=== PATIENT | male | born 1970 | race Caucasian/White ===

== ENCOUNTER → 2019-07-17 16:52 | Outpatient (CLI) | payer OTHER, SELFPAY ==
[2015-09-18 11:44] VITALS: BMI 45.1
--- NOTE | 2019-07-17 17:00 | RAD_ITS ---
STUDY: X-RAY - LUMBAR SPINE REASON FOR EXAM: Male, 49 years old. Back pain TECHNIQUE: 3 view(s) of the lumbar spine were obtained. COMPARISON: None FINDINGS: There is straightening of the normal lumbar lordosis. There is no substantial scoliosis. There is a normal alignment of the vertebrae. Normal vertebral bodies and endplates. Normal disc space heights. There is no demonstrated fracture. The soft tissue structures are unremarkable. RAD/Lumbar Spine 2 or 3 Views IMPRESSION: Normal x-ray examination of the lumbar spine. Electronically Signed: Armando Bateman MD at 23:25 EDT , Service support ,
== END ==
PROVIDERS: Family Provider Internal Medicine; PCP Internal Medicine; Referring Provider Anesthesiology Pain Medicine; Visit Provider Anesthesiology Pain Medicine
DX: M54.9 Dorsalgia, unspecified (principal)
CPT/HCPCS: 72100

== ENCOUNTER → 2019-08-27 06:56 | Outpatient (CLI) | payer OTHER, SELFPAY ==
--- NOTE | 2019-08-27 07:00 | RAD_ITS ---
STUDY: X-RAY - ORBITS REASON FOR EXAM: Male, 49 years old. Evaluate for foreign body. TECHNIQUE: 2 view(s) of the orbits were obtained. COMPARISON: None. FINDINGS: Normal bilateral orbits without a metallic orbital foreign body. Normal visualized facial bones. Normal paranasal sinuses. The soft tissue structures are unremarkable. RAD/Orbits for Foreign Body IMPRESSION: No demonstrated metallic orbital foreign body. The patient is cleared for an MRI examination. Electronically Signed: Brenda Villanueva MD at 7:21 EST , Service support ,
--- NOTE | 2019-08-27 07:24 | MRI_ITS ---
STUDY: MRI LUMBAR SPINE WITHOUT CONTRAST REASON FOR EXAM: Male, 49 years old. Radiculopathy. Low back pain. Bilateral hip pain. TECHNIQUE: Standardized fat and water weighted pulse sequences were obtained in the sagittal and axial planes. COMPARISON: X-ray dated July 17, 2019 FINDINGS: Lumbar straightening. Minimal levoscoliosis. Conus medullaris terminates normally at the L1 level. No acute fracture. No dislocation. No bone destruction. Normal paraspinal muscles. Normal aorta. Normal retroperitoneum. Sacrum intact. 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 T12-L1: Normal endplates. Normal disc height, hydration and morphology. Normal bilateral facet joints. Normal central canal and bilateral lateral recesses. Normal bilateral intervertebral neural foramina. L1-2: Mild endplate spondylosis. Shallow disc bulge. Normal bilateral facet joints. Normal central canal and bilateral lateral recesses. Neural foraminal narrowing without impingement. L2-3: Normal endplates. Minimal disc desiccation. Facet joint arthrosis. Normal central canal and bilateral lateral recesses. Neural foraminal narrowing without impingement. L3-4: Minimal endplate spondylosis. Central and slightly cephalad disc extrusion with severe central canal narrowing (axial image 13 series 5 and sagittal image 7 series 2). Herniated disc material measures approximately 5 mm x 5 mm x 9 mm Facet joint arthrosis. Bilateral lateral recess narrowing with impingement. Bilateral neural foraminal narrowing with impingement on the right. L4-5: Minimal endplate spondylosis. Disc bulge, essentially with mild central canal narrowing. Facet joint arthrosis. Lateral recess narrowing without impingement. Neural foraminal narrowing without impingement. L5-S1: Mild endplate spondylosis. Disc bulge prominent centrally with mild central canal narrowing. Facet joint arthrosis. Lateral recess narrowing without impingement. Neural foraminal narrowing with impingement on the left. 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
== END ==
PROVIDERS: Family Provider Internal Medicine; PCP Internal Medicine; Referring Provider Nurse Practitioner Family; Visit Provider Nurse Practitioner Family
DX: M51.37 Other intervertebral disc degeneration, lumbosacral region (principal); M54.17 Radiculopathy, lumbosacral region
CPT/HCPCS: 70030; 72148

== ENCOUNTER 2021-09-03 09:02 | Emergency (ER) | payer OTHER, SELFPAY ==
[2021-09-03 09:03] VITALS: BP 166/106; PULSE 71; RESP 18; TEMP 36; O2SAT 99; BMI 48.1
--- NOTE | 2021-09-03 09:45 | EDS_ITS ---
HPI HPI - GI History of Present Illness Chief Complaint: Abd Pain Informant: patient Abdominal Pain/Flank Pain Onset: Weeks (2) Context: Sudden Onset Timing: Intermittent Quality: Aching and Sharp Location: LLQ Current Severity: Gone Maximum Severity: Severe Worsened by: - (actively sitting down or twisting when getting out of bed for instance) Relieved by: Remaining Still Nausea/Vomiting/Emesis GI Symptom: Negative for Nausea and Vomiting Diarrhea/Melena/Hematochezia GI Symptom: Positive for Diarrhea (chronic, mild, unchanged); Negative for Melena and Hematochezia Associated Symptoms Associated Symptoms: Negative for Dysuria, Frequency, Hematuria and Urgency Narrative Narrative: Patient states he is having intermittent pain in his left lower fernanda drant when he twists or sits down. Been going on for several weeks and this is the first time he is presented to have it looked at by someone. Denies any nausea or vomiting or fevers. No blood in his stool. Some diarrhea that is unchanged from normal. Never had a colonoscopy before, no history of abdominal surgeries. [facility] Medical History Asthma Diabetes Hypertension Home Medications albuterol sulfate [Ventolin HFA] 1 - 2 puff INHALATION Q4H PRN PRN 09/11/15 [History Last Taken 09/18/15 11:42 2] fluticasone propion-salmeterol [Advair Diskus] 1 puff INHALATION BID 09/11/15 [History Last Taken Unknown] fluticasone propionate 2 spray NASAL DAILY 09/11/15 [History Last Taken Unknown] montelukast 10 mg PO DAILY 09/11/15 [History Last Taken Unknown] oxycodone-acetaminophen 1 - 2 tab PO Q4H PRN PRN #30 tab 09/18/15 [Rx Last Taken Unknown] Allergy/AdvReac Type Severity Reaction Status Date / Time No Known Allergies Allergy Verified 09/03/21 09:05 Social History Smoking Status: Current every day smoker tobacco type: cigarettes ROS ROS ED Constitutional Constitutional ED: Denies chills or fever(s) Eyes Eyes: Denies change in vision or diplopia ENT ENT ED: Denies rhinorrhea or sore throat Cardiovascular Cardiovascular: Denies chest pain or palpitations Respiratory/Chest Respiratory/Chest: Denies cough or dyspnea Gastrointestinal Gastrointestinal: Reports as per HPI and abdominal pain; Denies diarrhea, nausea or vomiting Genitourinary Genitourinary ED: Denies dysuria or hematuria Musculoskeletal Musculoskeletal: Denies back pain or neck pain Integumentary Denies abscess or rash Neurologic Neurologic: Denies headache(s), paresthesias or weakness Psychiatric Psychiatric: Denies anxiety or suicidal thoughts EXAM Physical Exam Const Vital Signs: 09/03/21 09:03 09/03/21 11:27 Temperature 96.8 F L 98.6 F Temperature Source Temporal Temporal Pulse Rate 71 89 Respiratory Rate 18 18 Blood Pressure 166/106 H 155/67 H Blood Pressure Mean 126 96 Pulse Ox 99 96 Oxygen Delivery Method Room Air Room Air Positive well nourished and well developed General Appearance ED: well developed and NAD HEENT Reports moist mucous membranes normocephalic and atraumatic Eyes PERRL and EOMs intact bilaterally Neck full ROM and supple Resp normal respiratory effort and clear to auscultation bilaterally Cardio regular rate, regular rhythm and no murmurs GI non-distended GI Narrative: Mildly tender in the distal left lower quadrant, just above the inguinal crease, within patient's small pannus. ASIS and other pelvic bony prominences including the pubic symphysis are nontender and unaffected, the patient states it is above this. Auscultation: normoactive bowel sounds Palpation: soft Back/Spine no CVA tenderness General Back: other FROM Extremity normal to inspection General Extremety ED: Negative for edema, pulses abnormal or tenderness General Extremity: Negative for edema or pulses abnormal Neuro oriented x3, CN's II-XII intact bilaterally and no sensory deficits noted Sensorium / Orientation: awake and alert Motor Exam: strength 5/5 throughout Skin no rashes or lesions noted and no wounds MDM MDM MDM Narrative Medical decision making narrative: Historically this sounds like a muscle strain or bursitis, but the patient is indicating that it is above areas in which this would typically occur, and he has truncal obesity, limiting my exam due to his small pannus. Therefore I recommend a CT in order to rule out emergent causes such as diverticulitis. This was done, results are as below. He does have scattered diverticulosis without evidence of diverticulitis. Incidental gallstones were seen, which are not causing the symptoms. Patient was reassured, I suspect this pain is indeed musculoskeletal, supportive care is advised and follow-up. Lab Data Attestation: I reviewed the patient's lab results. Labs: Laboratory Results - last 24 hr 09/03/21 09/03/21 09/03/21 10:00 10:00 10:40 WBC 11.0 RBC 4.81 Hgb 14.2 Hct 42.4 MCV 88.1 MCH 29.5 MCHC 33.5 RDW Std Deviation 43.3 RDW Coeff of [place] 13.4 Plt Count 246 MPV 8.9 Immature Gran % (Auto) 0.700 Neut % (Auto) 63.8 Lymph % (Auto) 25.5 [place] % (Auto) 7.3 Eos % (Auto) 2.1 Baso % (Auto) 0.6 Absolute Neuts (auto) 7.0 Absolute Lymphs (auto) 2.80 Nucleated RBC % 0 Sodium 140 Potassium 3.8 Chloride 108 H Carbon Dioxide 27.0 Anion Gap 5 BUN 12 Creatinine 0.72 Estim Creat Clear Calc 130.73 Est GFR (MDRD) Af Amer 149 Est GFR (MDRD) Non-Af 123 BUN/Creatinine Ratio 16.7 Glucose 125 H Calcium 8.5 Urine Color Yellow Urine Clarity Clear Urine pH 5.0 Ur Specific [place] 1.025 Urine Protein Negative Urine Glucose (UA) Normal Urine Ketones Negative Urine Occult Blood 25 H Urine Nitrite Negative Urine Bilirubin Negative Urine Urobilinogen Normal Ur Leukocyte Esterase Negative Urine RBC 0-5 SEEN Urine WBC 0 SEEN Ur Squamous Epith Cells 0 SEEN Urine Bacteria 0 SEEN Urine Mucus 0 SEEN Radiography Diagnostic Testing: Clinical Impression(s) from Imaging Studies Abdomen/Pelvis CT 09/03/21 10:42 IMPRESSION: 1. No acute findings. 2. Diffuse hepatic steatosis, hepatomegaly, and early signs of cirrhosis. No hepatic masses. 3. Cholelithiasis without CT findings to suggest acute cholecystitis 4. Scattered colonic diverticulosis without CT findings to suggest diverticulitis. Electronically Signed: Bernardino Jauregui MD at 11:09 EST Tel , Service support , Discharge Plan Triage Chief Complaint: Abd Pain ED Provider: Walt Saxena Dx/Rx/DC Orders Clinical Impression: Abdominal pain, acute, left lower quadrant, Cholelithiasis, Diverticulosis of colon Instructions: What Are Gallstones, ED Muscle Strain, Abdomen Prescriptions: No Action montelukast 10 MG tablet 10 mg PO DAILY RF: 0 fluticasone propion-salmeterol [Advair Diskus] 1 PUFF inhaler 1 puff inhalation BID RF: 0 albuterol sulfate [Ventolin HFA] 1 INHALER inhaler 1 - 2 puff inhalation Q4H PRN PRN (Reason: Asthma) RF: 0 fluticasone propionate 1 SPRAY Nasal.Sry 2 spray NASAL DAILY RF: 0 oxycodone-acetaminophen 1 TABLET tablet 1 - 2 tab PO Q4H PRN PRN (Reason: Pain) Qty: 30 RF: 0 Primary Care Provider: Tiara Sanchez Referrals: Tiara Sanchez MD [Primary Care Provider] - 3-5 Days if not improving Disposition Disposition: Home, Self Care
[2021-09-03 10:09] LABS: Basophil# 0.07 X10^3/uL; Basophil% 0.6 % (0-1); Eosinophil# 0.23 X10^3/uL; Eosinophils% 2.1 % (0-5); Hematocrit 42.4 % (40-54); Hemoglobin 14.2 g/dL (13.0-16.5); Lymphocyte % 25.5 % (19-41); Mean Corp Hgb Conc 33.5 g/dL (32-36); Mean Corpuscular Hgb 29.5 pg (27.0-32.0); Mean Corpuscular Volume 88.1 fL (80-94); Mean Platelet Vol. 8.9 fl (6.2-12.0); Monocyte% 7.3 % (0-10); NRBC Flagged by Analyzer 0 % (0-5); Neutrophil # 7.01 X10^3/uL (2.7-7.7); Neutrophil % 63.8 % (47-70); Platelet Count 246 K/mm3 (150-450); RBC Distribution Width CV 13.4 % (11.6-14.6); RBC Distribution Width SD 43.3 fl (35.1-43.9); Red Blood Count 4.81 M/mm3 (4.6-6.2)
[2021-09-03 10:21] LABS: Anion Gap 5 (5-15); BUN 12 mg/dL (7-18); BUN/Creat Ratio 16.7 RATIO (10-20); Calcium,Total 8.5 mg/dL (8.5-10.1); Chloride 108 mmol/L (98-107); Creatinine, Serum 0.72 mg/dL (0.70-1.30); EST Glomerular Filtration Rate 123 mL/min (>60); Est Glom Filt Rate - Afr Amer 149 mL/min (>60); Estimated Creatinine Clearance 130.73 ml/min; Glucose 125 mg/dL (74-106); Potassium 3.8 mmol/L (3.5-5.1); Sodium Level 140 mmol/L (136-145)
--- NOTE | 2021-09-03 10:42 | CT_ITS ---
INDICATION: LLQ pain EXAMINATION: CT ABDOMEN AND PELVIS WITH CONTRAST - CT Abdomen And Pelvis W/ Contrast Injection TECHNIQUE: Helically acquired images were obtained of the abdomen and pelvis following IV contrast. A radiation dose optimization technique was used for this scan. IV Contrast dosage and agent: 100 mL of [id number] Oral contrast: None. COMPARISON: None FINDINGS: Lower chest: Visualized lung bases are clear. Liver: Liver is enlarged measuring up to 21 cm in the craniocaudal dimension. Diffuse hepatic steatosis. Slightly nodular contour with widening of the fissure and recanalization of a small paraumbilical vein. No masses. Gallbladder: Cholelithiasis. No CT findings to suggest acute cholecystitis. Gallbladder is nondilated. No bile duct dilation. Spleen: Unremarkable. Pancreas: Fatty infiltration of the pancreatic head. No focal parenchymal masses. No duct dilation. Adrenal glands: Unremarkable. Kidneys: No cystic or solid masses. No hydronephrosis. No acute findings. GI tract: No significant bowel wall thickening or bowel dilation. Scattered colonic diverticulosis without CT findings to suggest diverticulitis. No acute inflammatory findings. Appendix is normal. Peritoneum/mesentery/retroperitoneum: No ascites or free air. No masses. Pelvis: Bladder is collapsed. No ascites or free air. No masses. Vasculature: No acute findings. Bones/soft tissues: No acute findings. Chronic L4-L5 bilateral pars defects. CT/Abdomen/Pelvis W IV Cont ONLY IMPRESSION: 1. No acute findings. 2. Diffuse hepatic steatosis, hepatomegaly, and early signs of cirrhosis. No hepatic masses. 3. Cholelithiasis without CT findings to suggest acute cholecystitis 4. Scattered colonic diverticulosis without CT findings to suggest diverticulitis. Electronically Signed: Bernardino Jauregui MD at 11:09 EST Tel , Service support ,
[2021-09-03] MEDS: 0.9% Normal Saline 1,000 ML 1000 ML IV (10:43)
[2021-09-03 10:50] LABS: Bacteria 0 SEEN /hpf (None Seen); Mucous, Urine 0 SEEN /hpf (<or=2+); Squamous Epithelial Cells - UA 0 SEEN /hpf (0-5); White Blood Cells 0 SEEN /hpf (0-5)
[2021-09-03 10:51] LABS: Color, Urine Yellow (Yellow); Glucose, Dipstick Normal (Normal); Ketone-Dipstick Negative (Negative); Leukocyte Esterase-Dipstick Negative /ul (Negative); Nitrite-Dipstick Negative (Negative); Occult Blood-Urine 25 /ul (Negative); Protein-Dipstick Negative (Negative); Specific Gravity, Urine 1.025 (1.002-1.030); Urine Bilirubin Dipstick Negative (Negative); Urine Clarity Clear (Clear); Urine Urobilinogen Normal (Normal)
[2021-09-03 11:01] LABS: Red Blood Cells-Urine 0-5 SEEN /hpf (0-5)
[2021-09-03 11:27] VITALS: BP 155/67; PULSE 89; RESP 18; TEMP 37; O2SAT 96
[2021-09-03] MEDS: Naproxen 250 MG Tablet 500 MG PO (12:20)
== END 2021-09-03 12:25 | disposition home or self-care (01) ==
PROVIDERS: Emergency Provider Emergency Medicine; PCP Internal Medicine
DX: K80.20 Calculus of gallbladder without cholecystitis without obstruction (principal); K57.30 Diverticulosis of large intestine without perforation or abscess without bleeding; K76.0 Fatty (change of) liver, not elsewhere classified; J45.909 Unspecified asthma, uncomplicated; F17.210 Nicotine dependence, cigarettes, uncomplicated; Z79.51 Long term (current) use of inhaled steroids
CPT/HCPCS: 74177; 80048; 81001; 85025; 96360; 96361; 99284; J7030; Q9967